=== PATIENT | female | born 1995 | race Caucasian/White ===

== ENCOUNTER 2016-12-09 14:13 | Observation (INO) | payer MEDICAID ==
[~2016-12-09] VITALS: Ht 5 cm; Wt 68.9 kg
[~2016-12-09 14:13] MED LIST: IBUP-779 PO; IRON18TA PO; MULT-1146 PO
[2016-12-09] MEDS ORDERED: PREN-88 PO (15:45)
== END 2016-12-09 16:40 | disposition home or self-care (01) ==
LOC: L&D 14:13
PROVIDERS: ADMIT Obstetrics & Gynecology; ATTEND Obstetrics & Gynecology
DX: Z34.93 Encounter for supervision of normal pregnancy, unspecified, third trimester (principal); Z3A.38 38 weeks gestation of pregnancy
CPT/HCPCS: 59025; 76815; 76818; G0378